=== PATIENT | male | born 1955 | race Caucasian/White ===

== ENCOUNTER 2020-12-26 10:01 | Emergency (ER) | payer BC ==
[2020-12-26 10:22] VITALS: BMI 30.5
[2020-12-26] MEDS ORDERED: CASIRIVIMAB/IMDEVIMAB 10 ML in SODIUM CHLORIDE 100 ML IVPB ONE ×2 (10:40→11:40)
[2020-12-26 12:26] LABS: BASO % 0.7 % (0-2.0); EOS % 0.2 % (0-4.5); HEMATOCRIT 51.8 % (35.4-49); LYMPH % 28.9 % (8-40); MCH 32.5 pg (25.7-33.7); MCHC 34.7 g/dl (32.0-35.9); MEAN CELL VOLUME 93.6 fl (80-96); MEAN PLT VOLUME 8.4 fl (7.5-11.1); NEUT % 55.2 % (42.8-82.8); PLATELET COUNT 86 10^3/uL (134-434); RBC 5.53 M/mm3 (4.00-5.60); RDW 14.8 % (11.9-15.9); WHITE BLOOD COUNT 5.8 K/mm3 (4.0-10.0)
[2020-12-26 12:49] LABS: BLOOD UREA NITROGEN 18.2 mg/dL (7-18); CALCIUM 8.9 mg/dL (8.5-10.1)
[2020-12-26 12:50] LABS: ALBUMIN 4.4 g/dl (3.4-5.0)
[2020-12-26 12:53] LABS: CREATININE 1.3 mg/dL (0.55-1.3)
[2020-12-26 12:54] LABS: BILIRUBIN,TOTAL 1.3 mg/dL (0.2-1); TOT PROT 7.7 g/dl (6.4-8.2)
[2020-12-26 13:37] VITALS: BP 106/72; PULSE 96; TEMP 101.1
== END 2020-12-26 13:37 | disposition home or self-care (01) ==
LOC: JCOVINFU 10:01 → JER 10:01 → JCOVINFU 13:37
DX: U07.1 COVID-19 (principal)
CPT/HCPCS: 36415; 80053; 85025; 99284-25; M0240; Q0240

== ENCOUNTER 2021-07-30 10:34 | Emergency (ER) | payer BC ==
[2021-07-30 10:57] VITALS: TEMP 98.4; BMI 29.3
[2021-07-30 11:30] LABS: BASO % 0.2 % (0-2.0); EOS % 0.2 % (0-4.5); HEMATOCRIT 49.4 % (35.4-49); HEMOGLOBIN 17.2 GM/dL (11.7-16.9); LYMPH % 15.4 % (8-40); MCH 34.6 pg (25.7-33.7); MCHC 34.8 g/dl (32.0-35.9); MEAN CELL VOLUME 99.3 fl (80-96); MONO % 10.3 % (3.8-10.2); NEUT % 73.9 % (42.8-82.8); PLATELET COUNT 148 10^3/uL (134-434); RBC 4.98 M/mm3 (4.00-5.60); RDW 13.5 % (11.9-15.9); WHITE BLOOD COUNT 7.8 K/mm3 (4.0-10.0)
[2021-07-30 11:39] LABS: CALCIUM 9.5 mg/dL (8.5-10.1); MAGNESIUM 2.5 mg/dL (1.8-2.4)
[2021-07-30 11:40] LABS: ALBUMIN 4.2 g/dl (3.4-5.0)
[2021-07-30 11:41] LABS: CREATININE 1.1 mg/dL (0.55-1.3)
[2021-07-30 11:42] LABS: INR 1.28 (0.83-1.09); PROTHROMBIN TIME (PATIENT) 14.8 SEC (9.7-13.0)
[2021-07-30 11:44] LABS: ACTIVATED PTT 31.6 SECONDS (25.2-36.5); BILIRUBIN,TOTAL 1.2 mg/dL (0.2-1); TOT PROT 7.5 g/dl (6.4-8.2)
[2021-07-30] MEDS ORDERED: INSULIN (LEVEMIR) 100 UNITS/ML UNITS SQ ONE (11:48)
[2021-07-30] MEDS ORDERED: LACTATED RINGERS SOLUTION 1000 ML INFUS.BAG IV ONE (12:09)
[2021-07-30 13:23] VITALS: BP 146/86; PULSE 87
== END 2021-07-30 14:00 | disposition home or self-care (01) ==
LOC: JER 10:34
DX: R07.9 Chest pain, unspecified (principal)
CPT/HCPCS: 36415; 71045-TC-FY; 80053; 82550; 82553; 83735; 84484; 85025; 85610; 85730; 93005; 93010; 99283-25